=== PATIENT | female | born 1985 | race Caucasian/White ===

== ENCOUNTER → 2018-03-11 17:59 | Outpatient (CLI) | payer SELFPAY ==
[2018-03-16 11:08] LABS: HPV Reflexed? NOT INDICATED
== END ==
PROVIDERS: Visit Provider Obstetrics & Gynecology
DX: Z12.4 Encounter for screening for malignant neoplasm of cervix (principal)
CPT/HCPCS: 88175; G0145

== ENCOUNTER 2018-03-12 13:30 | Day surgery (SDC) | payer SELFPAY, OTHER ==
[2018-03-12 14:03] LABS: Hematocrit 40.4 % (37-47); Hemoglobin 13.6 g/dl (12.0-15.0); Mean Corp Hgb Conc 33.7 g/gl (32-36); Mean Corpuscular Hgb 28.2 pg (27.0-32.0); Mean Corpuscular Volume 83.6 fL (81-99); Mean Platelet Vol. 10.4 fl (6.2-12.0); Platelet Count 221 K/mm3 (150-450); RBC Distribution Width CV 13.7 % (11.6-14.6); RBC Distribution Width SD 41.3 fl (35.1-43.9); Red Blood Count 4.83 M/mm3 (4.2-5.4); Scan Indicated on CBC? Y/N NO; White Blood Count 4.7 K/mm3 (4.4-11.0)
[2018-03-12 14:06] VITALS: BP 136/87; PULSE 77; RESP 16; TEMP 37.2; O2SAT 100; BMI 29.1
[2018-03-12] MEDS: Methylergonovine 0.2 MG/ML Ampul IM (16:22)
--- NOTE | 2018-03-12 16:24 | PCM.OP.BLANK ---
Operative Report Date of Procedure: 03/12/18 Surgeon: Keith Meade MD, FACOG Anesthesia: Roland Green CRNA Type of Anesthesia: General Endotracheal Pre-Op Diagnosis: Incomplete Miscarriage Postoperative diagnosis: Incomplete Miscarriage Procedure: Suction Dilation and Evacuation under Ultrasound Guidance Findings: 15 cm endometrial cavity with copious amounts of products of conception noted. Tissue was macerated. By ultrasound, all tissue was removed in the course of the procedure. Indications: This is a 32 year old patient who has the above diagnosis. She is at approximately 16 weeks gestation with a 13 week 2 day baby without heart tones. The patient has been counseled regarding the risk and indications of this procedure including the possibility of bleeding, infection, and injury to surrounding structures such as bowel bladder. All questions were answered to reconsider the patient well-informed. Procedure: The patient was taken to the operating room where after induction of general anesthesia, she was placed in the dorsolithotomy position and prepped and draped in the usual sterile fashion. The bladder was drained of approximately 50 cc of clear yellow urine with a red rubber catheter. Anterior cervix was grasped with the tenaculum and dilated to about 13-14 mm. A 14 mm suction curette was placed in the uterus and virtually all contents were removed. A ring forcep was used to assist with delivery of tissue. Ultrasound confirmed complete uterine evacuation. Patient tolerated procedure well was taken to recovery room in satisfactory condition sponge instrument and needle counts were all reportedly correct. Estimated blood loss for the case was less than 100 cc. Cefotan 2 g IV was given prior to beginning the procedure. Specimen to pathology was products of conception.
--- NOTE | 2018-03-12 16:30 | PCM.DC.D&C ---
Discharge Diet: No Restrictions Discharge Activity: Return to Normal Activity, May Shower, May Take a Tub Bath May resume sexual activity in: 1-2 weeks Call your doctor if you observe: Fever of 101 or Higher, Inability to urinate, Inability to have a bowel movement, Using more than one pad per hour Allergies/Adverse Reactions: Allergies No Known Allergies Allergy (Verified 03/12/18 11:26) Medications to take at Discharge Pnv No.122/Iron/Folic Acid [ Multi Tablet] 1 each PO DAILY 03/12/18 Primary Care Physician: Tyree Peetr MD [Primary Care Provider] - Test Results: Test results from this visit will be discussed in further detail at your follow-up appointment, if applicable. Please Follow Up With: Keith Meade MD When: 2-3 weeks
[2018-03-12 16:32] VITALS: BP 121/79; BP 136/87; PULSE 95; RESP 16; TEMP 37.3; O2SAT 98
[2018-03-12 16:45] VITALS: BP 132/87; BP 136/87; PULSE 85; RESP 16; O2SAT 100
[2018-03-12 17:00] VITALS: BP 130/75; BP 136/87; PULSE 86; RESP 16; O2SAT 100
[2018-03-12 17:16] VITALS: BP 129/78; BP 136/87; PULSE 75; RESP 16; TEMP 37.2; O2SAT 100
[2018-03-12] MEDS: BENZOCAINE/MENTHOL 1 LOZENGE 2 LOZENGE MUCOUS MEM ×2 (17:36→17:37)
[2018-03-12 17:47] VITALS: BP 136/87
--- NOTE | 2018-03-13 | POC_PTH ---
PATIENT: KATERINA OJEDA [place] [facility] [place][id number] AGE/SX: 32/F ROOM: RE03/12/[address]: Dr. Keith Meade MD : 1985 BED: DIS: 03/12/2018 SPEC #: [id number] RECD: 03/13/18 10:10 STATUS: OSMAN SAMIR #: [id number] CHARANJIT: 03/13/18 00:[address]: Keith Meade DEPT: SURGICAL PATHOLOGY RECD BY: Humble Avila ENTERED: 03/13/18 10:10 SP TYPE: PROD CONC OTHR DR: Dr. Tyree Peter MD Tissues: Product of conception, NOS Procedures: Surgery Specimen Level IV HEADER OPERATION: Dilation and curettage, suction PRE-OP DIAGNOSIS: Inevitable miscarriage TISSUE SUBMITTED: Products of conception MICROSCOPIC DIAGNOSIS Products of conception: Immature placental tissue including umbilical cord and tissue (products of conception). SJ:eliel 03/17/18 MICROSCOPIC DESCRIPTION Slides are reviewed. GROSS DESCRIPTION Received in fixative is one container labeled with the patient's name and designated products of conception. The specimen consists of multiple irregular and macerated fragments of reddish-daniels soft tissue that in aggregate measure 12 x 11.5 x 1.5 cm. The specimen contains portions of a macerated fetus and possibly placental tissue, portions of umbilical cord and blood clots. Insulation Hoseman sections are submitted in three cassettes. / AM:eliel 03/13/18 TC:5 [facility]: [id number]
== END 2018-03-12 18:36 | disposition home or self-care (01) ==
LOC: SDC 13:36 → AC 13:39
PROVIDERS: Family Provider Obstetrics & Gynecology; PCP Family Medicine; Visit Provider Obstetrics & Gynecology
PROC: (CPT 59812; principal; 2018-03-12 09:40)
DX: O03.4 Incomplete spontaneous abortion without complication (principal); E05.00 Thyrotoxicosis with diffuse goiter without thyrotoxic crisis or storm
CPT/HCPCS: 01965; 59812; 85027; 86850; 86900; 88305; J7120; J2405

== ENCOUNTER → 2019-02-03 16:27 | Outpatient (CLI) | payer SELFPAY ==
[2019-02-03 17:23] LABS: Absolute Lymphocyte Count 2.43 X10^3/uL (0.83-4.51); Absolute Neutrophil Count 3.8 X10^3/uL (2.0-7.7); Basophil# 0.03 X10^3/uL; Basophil% 0.5 % (0-1); Eosinophil# 0.03 X10^3/uL; Eosinophils% 0.5 % (0-5); Hematocrit 40.8 % (37-47); Hemoglobin 13.9 g/dL (12.0-15.0); Lymphocyte # 2.43 X10^3/ul (4.0); Lymphocyte % 36.8 % (19-41); Mean Corp Hgb Conc 34.1 g/dL (32-36); Mean Corpuscular Hgb 29.3 pg (27.0-32.0); Mean Corpuscular Volume 86.1 fL (81-99); Mean Platelet Vol. 11.3 fl (6.2-12.0); Monocyte# 0.32 X10^3/uL; Monocyte% 4.8 % (0-10); NRBC Flagged by Analyzer 0 % (0-5); Neutrophil # 3.79 X10^3/uL (2.7-7.7); Neutrophil % 57.2 % (47-70); Platelet Count 247 K/mm3 (150-450); RBC Distribution Width CV 13.2 % (11.6-14.6); RBC Distribution Width SD 41.1 fl (35.1-43.9); Red Blood Count 4.74 M/mm3 (4.2-5.4); White Blood Count 6.6 K/mm3 (4.4-11.0)
[2019-02-03 17:29] LABS: Color, Urine Yellow (Yellow); Glucose, Dipstick Normal (Normal); Ketone-Dipstick Negative (Negative); Leukocyte Esterase-Dipstick Negative /ul (Negative); Nitrite-Dipstick Negative (Negative); Occult Blood-Urine Negative /ul (Negative); Protein-Dipstick Negative (Negative); Specific Gravity, Urine 1.015 (1.002-1.030); Urine Bilirubin Dipstick Negative (Negative); Urine Clarity Clear (Clear); Urine Urobilinogen Normal (Normal)
[2019-02-03 18:19] LABS: Thyroid Stim Hormone (TSH) 0.03 uIU/mL (0.358-3.74)
[2019-02-03 18:58] LABS: Chlamydia Trachomatis by PCR Negative (Negative); Neisserai gonorrhoeae by PCR Negative (Negative); Probe Check PASS; Sample Adequacy Control PASS; Specimen Processing Control PASS
[2019-02-04 09:54] LABS: HIV - WCH Non-Reactive (Nonreactive); Hepatitis B Surface Antigen Non-Reactive (Nonreactive); Hepatitis C Antibody Non-Reactive (Nonreactive); Rubella IgG 10.4 IU/mL
[2019-02-04 11:37] LABS: Free T3 2.7 pg/mL (2.18-3.98); T4 Free Direct 0.97 ng/dL (0.76-1.46)
[2019-02-05 01:33] LABS: Prenatal RPR NONREACTIVE (NONREACTIVE)
== END ==
PROVIDERS: Family Provider Obstetrics & Gynecology; Visit Provider Obstetrics & Gynecology
DX: Z11.3 Encounter for screening for infections with a predominantly sexual mode of transmission (principal); Z34.81 Encounter for supervision of other normal pregnancy, first trimester
CPT/HCPCS: 36415; 81002; 84439; 84443; 84481; 85025; 86703; 86762; 86803; 87340; 87491; 87591

== ENCOUNTER → 2020-11-07 14:45 | Outpatient (CLI) | payer SELFPAY ==
[2020-11-10 12:59] LABS: HPV Reflexed? NOT INDICATED
== END ==
PROVIDERS: Visit Provider Obstetrics & Gynecology
DX: Z12.4 Encounter for screening for malignant neoplasm of cervix (principal)
CPT/HCPCS: 88175; G0145